=== PATIENT | male | born 1965 | race Caucasian/White ===

== ENCOUNTER → 2017-01-28 | Outpatient (CLI) | payer OTHER ==
[~2017-01-28] MED LIST: LISINOPRIL20 MG PO; LORTAB 5-325 M1 EACH PO; MOTRIN IB200 MG PO; NAPROSYN500 MG PO; OMEPRAZOLE40 M1 PO; OXYCODONE-APAP1 EACH PO; OXYMORPHONE HCL40 MG PO; VALIUM5 MG PO; VICODIN,LORT1 TABLET PO; VIMOVO 500-201 EAC1 PO; ZOFRAN ODT4 MG PO
== END | disposition home or self-care (01) ==
LOC: CDC 10:30
DX: Z01.810 Encounter for preprocedural cardiovascular examination (principal); G56.02 Carpal tunnel syndrome, left upper limb; G56.22 Lesion of ulnar nerve, left upper limb; M79.642 Pain in left hand; R94.31 Abnormal electrocardiogram [ECG] [EKG]
CPT/HCPCS: 93000

== ENCOUNTER 2017-07-29 11:24 | Emergency (ER) | payer OTHER ==
[~2017-07-29] VITALS: Ht 170.2 cm; Wt 67.6 kg
[2017-07-29 12:11] LABS: HEMOGLOBIN 14.2 G/DL (12.5-16.6); MCHC 35.5 G/DL (30.0-36.0); MCV 95.7 FL (86-99); PLATELET COUNT 228 K/uL (156-360); RBC DIS.WIDTH-CV 12.1 % (11.8-14.6); RED BLOOD COUNT 4.18 M/uL (4.00-5.50); WHITE BLOOD COUNT 5.2 K/uL (4.1-10.2)
[2017-07-29 12:21] LABS: CHLORIDE 105 mEq/L (99-109); POTASSIUM 4.1 mEq/L (3.7-5.4); SODIUM 137 mEq/L (136-147)
[2017-07-29 12:23] LABS: GLUCOSE 108 mg/dL (70-99)
[2017-07-29 12:27] LABS: CREATININE 0.8 mg/dL (0.6-1.3); GFR ESTIMATE (CALCULATED) > 59 mL/min/ (58.99-99999)
[2017-07-29 12:28] LABS: UREA NITROGEN (BUN) 8 mg/dL (9-23)
[2017-07-29 13:17] LABS: TROP-I INTERPRETATION NEGATIVE; TROPONIN-I < 0.01 ng/mL (0.0-0.30)
[2017-07-29] MEDS ORDERED: VENTOLIN HFA18 GM IH (14:19)
[2017-07-29] MEDS ORDERED: PREDNISONE10 MG PO (14:19)
[2017-07-29 15:19] LABS: TROP-I INTERPRETATION NEGATIVE; TROPONIN-I 0.02 ng/mL (0.0-0.30)
[2017-07-29 16:02] VITALS: BP 136/67
== END 2017-07-29 16:04 | disposition home or self-care (01) ==
LOC: EME 11:24
PROVIDERS: Nurse Practitioner Family
DX: J06.9 Acute upper respiratory infection, unspecified (principal); R07.89 Other chest pain; F17.200 Nicotine dependence, unspecified, uncomplicated; I10 Essential (primary) hypertension; K21.9 Gastro-esophageal reflux disease without esophagitis
CPT/HCPCS: 71046; 80048; 84484; 85027; 93005; 94640; 99281; 99285; J7512